=== PATIENT | male | born 1985 | race Caucasian/White ===

== ENCOUNTER 2017-01-07 12:15 | Emergency (ER) | payer OTHER ==
[~2017-01-07] VITALS: Ht 182.9 cm; Wt 73.0 kg
[~2017-01-07 12:15] MED LIST: ANAPROX DS550 M1 PO; CLEOCIN300 MG PO; FLEXERIL10 MG PO; MOTRIN800 MG PO; NAPROXEN500 MG PO; NOHOMEMEDS; NON ADHERENT P1 EACH TP; PERCOCET 5/31 TABLET PO; ULTRAM50 MG PO
[2017-01-07 12:54] VITALS: BP 105/52
== END 2017-01-07 12:35 | disposition left against medical advice (07) ==
LOC: EME 12:15
DX: T50.991A Poisoning by other drugs, medicaments and biological substances, accidental (unintentional), initial encounter (principal); F19.10 Other psychoactive substance abuse, uncomplicated; F17.200 Nicotine dependence, unspecified, uncomplicated; Z88.0 Allergy status to penicillin
CPT/HCPCS: 99281; 99284

== ENCOUNTER 2017-01-07 16:55 | Emergency (ER) | payer OTHER ==
[~2017-01-07] VITALS: Ht 185.4 cm; Wt 83.0 kg
[2017-01-07 17:18] VITALS: BP 108/60
== END 2017-01-07 17:19 | disposition home or self-care (01) ==
LOC: EME 16:55
DX: F19.10 Other psychoactive substance abuse, uncomplicated (principal); F17.200 Nicotine dependence, unspecified, uncomplicated; Z88.0 Allergy status to penicillin
CPT/HCPCS: 99281; 99283

== ENCOUNTER 2017-01-10 12:56 | Emergency (ER) | payer OTHER ==
[~2017-01-10] VITALS: Ht 182.9 cm; Wt 72.7 kg
[2017-01-10 14:35] VITALS: BP 89/49
== END 2017-01-10 14:37 | disposition left against medical advice (07) ==
LOC: EME 12:56
DX: T50.901A Poisoning by unspecified drugs, medicaments and biological substances, accidental (unintentional), initial encounter (principal); R41.82 Altered mental status, unspecified; F19.10 Other psychoactive substance abuse, uncomplicated; J45.909 Unspecified asthma, uncomplicated; F32.9 Major depressive disorder, single episode, unspecified; F17.200 Nicotine dependence, unspecified, uncomplicated; I95.9 Hypotension, unspecified
CPT/HCPCS: 80048; 85027; 94799; 99281; 99285; G0480; J2310; J7030

== ENCOUNTER 2017-01-10 16:38 | Emergency (ER) | payer OTHER ==
[~2017-01-10] VITALS: Ht 185.4 cm; Wt 70.0 kg
[2017-01-10 17:18] VITALS: BP 120/59
== END 2017-01-10 17:26 | disposition left against medical advice (07) ==
LOC: EME → EDBD 16:38 → EME 17:26
DX: F19.10 Other psychoactive substance abuse, uncomplicated (principal); F17.200 Nicotine dependence, unspecified, uncomplicated
CPT/HCPCS: 99281; 99285

== ENCOUNTER 2017-01-12 13:35 | Emergency (ER) | payer OTHER ==
[~2017-01-12] VITALS: Ht 182.9 cm; Wt 80.8 kg
[2017-01-12 13:46] VITALS: BP 0/0
== END 2017-01-12 13:57 ==
LOC: EME 13:35
DX: F16.10 Hallucinogen abuse, uncomplicated (principal); J45.909 Unspecified asthma, uncomplicated; F17.200 Nicotine dependence, unspecified, uncomplicated
CPT/HCPCS: J1630

== ENCOUNTER 2017-01-13 09:14 | Emergency (ER) | payer OTHER ==
[~2017-01-13] VITALS: Ht 185.4 cm; Wt 78.7 kg
[2017-01-13 11:18] VITALS: BP 115/67
== END 2017-01-13 11:20 | disposition left against medical advice (07) ==
LOC: EME → EDBD 09:14 → EME 11:20
DX: Z77.29 Contact with and (suspected) exposure to other hazardous substances (principal); Z88.0 Allergy status to penicillin; F17.200 Nicotine dependence, unspecified, uncomplicated
CPT/HCPCS: 80048; 85025; 99281; 99284

== ENCOUNTER 2017-01-13 16:08 | Emergency (ER) | payer OTHER ==
[~2017-01-13] VITALS: Ht 182.9 cm; Wt 81.9 kg
[2017-01-13 16:58] VITALS: BP 105/67
== END 2017-01-13 16:59 | disposition left against medical advice (07) ==
LOC: EME 16:08
DX: R55 Syncope and collapse (principal); F19.10 Other psychoactive substance abuse, uncomplicated; F17.200 Nicotine dependence, unspecified, uncomplicated; Z88.0 Allergy status to penicillin
CPT/HCPCS: 99281; 99285

== ENCOUNTER 2017-01-15 18:50 | Emergency (ER) | payer OTHER ==
[~2017-01-15] VITALS: Ht 182.9 cm; Wt 77.6 kg
[2017-01-15] MEDS ORDERED: NARCAN4 MG NS (19:59)
[2017-01-16 00:02] VITALS: BP 101/64
== END 2017-01-16 00:04 | disposition home or self-care (01) ==
LOC: EME 18:50
DX: T50.991A Poisoning by other drugs, medicaments and biological substances, accidental (unintentional), initial encounter (principal); M54.2 Cervicalgia; F14.90 Cocaine use, unspecified, uncomplicated; F15.90 Other stimulant use, unspecified, uncomplicated; F17.200 Nicotine dependence, unspecified, uncomplicated
CPT/HCPCS: 72040; 99281; 99285; J2310; J7030

== ENCOUNTER 2017-01-16 14:16 | Emergency (ER) | payer OTHER ==
[~2017-01-16] VITALS: Ht 182.9 cm; Wt 82.4 kg
[~2017-01-16 14:16] MED LIST changes: +NARCAN4 MG NS
[2017-01-16 16:19] VITALS: BP 121/79
== END 2017-01-16 16:20 | disposition left against medical advice (07) ==
LOC: EME 14:16
DX: F12.10 Cannabis abuse, uncomplicated (principal); J45.909 Unspecified asthma, uncomplicated; F17.200 Nicotine dependence, unspecified, uncomplicated
CPT/HCPCS: 99281; 99284

== ENCOUNTER 2017-01-17 14:21 | Emergency (ER) | payer OTHER ==
[~2017-01-17] VITALS: Ht 188 cm; Wt 75.0 kg
[2017-01-17 14:55] VITALS: BP 102/68
== END 2017-01-17 15:31 | disposition home or self-care (01) ==
LOC: EME 14:21
DX: F12.188 Cannabis abuse with other cannabis-induced disorder (principal); R00.1 Bradycardia, unspecified; I95.2 Hypotension due to drugs; F17.200 Nicotine dependence, unspecified, uncomplicated
CPT/HCPCS: 80053; 82550; 85027; 93005; 99281; 99284

== ENCOUNTER 2017-01-18 11:27 | Emergency (ER) | payer OTHER ==
[~2017-01-18] VITALS: Ht 182.9 cm; Wt 83.0 kg
[2017-01-18 12:38] VITALS: BP 101/48
== END 2017-01-18 12:41 | disposition left against medical advice (07) ==
LOC: EME 11:27
DX: T40.901A Poisoning by unspecified psychodysleptics [hallucinogens], accidental (unintentional), initial encounter (principal); R41.82 Altered mental status, unspecified; F16.10 Hallucinogen abuse, uncomplicated; J45.909 Unspecified asthma, uncomplicated; Z88.0 Allergy status to penicillin
CPT/HCPCS: 80048; 81003; 85025; 99281; 99284; G0480

== ENCOUNTER 2017-01-21 21:14 | Emergency (ER) | payer OTHER ==
[~2017-01-21] VITALS: Ht 182.9 cm; Wt 76.8 kg
[2017-01-21 21:43] VITALS: BP 91/44
== END 2017-01-21 21:43 | disposition home or self-care (01) ==
LOC: EME → EDBD 21:14 → EME 21:14
DX: F12.10 Cannabis abuse, uncomplicated (principal); J45.909 Unspecified asthma, uncomplicated; F17.200 Nicotine dependence, unspecified, uncomplicated; Z88.0 Allergy status to penicillin
CPT/HCPCS: 99281; 99282

== ENCOUNTER → 2017-01-23 16:49 | Emergency (ER) | payer OTHER ==
[~2017-01-23] VITALS: Ht 182.9 cm; Wt 75.0 kg
[2017-01-23 17:03] VITALS: BP 83/38
== END | disposition left against medical advice (07) ==
LOC: EME 16:49
DX: F19.10 Other psychoactive substance abuse, uncomplicated (principal); F17.200 Nicotine dependence, unspecified, uncomplicated; Z88.0 Allergy status to penicillin

== ENCOUNTER 2017-01-28 13:21 | Emergency (ER) | payer OTHER ==
[~2017-01-28] VITALS: Ht 182.9 cm; Wt 72.9 kg
[2017-01-28 13:47] VITALS: BP 93/47
== END 2017-01-28 13:47 | disposition home or self-care (01) ==
LOC: EME 13:21
DX: T50.991A Poisoning by other drugs, medicaments and biological substances, accidental (unintentional), initial encounter (principal); F12.10 Cannabis abuse, uncomplicated; J45.909 Unspecified asthma, uncomplicated; F17.200 Nicotine dependence, unspecified, uncomplicated; Z88.0 Allergy status to penicillin
CPT/HCPCS: 99281; 99284

== ENCOUNTER 2017-03-13 21:17 | Emergency (ER) | payer OTHER ==
[~2017-03-13] VITALS: Ht 182.9 cm; Wt 72.4 kg
[2017-03-13 21:27] VITALS: BP 87/44
== END 2017-03-14 00:16 | disposition left against medical advice (07) ==
LOC: EME → EDBD 21:17 → EME 21:17
DX: T40.991A Poisoning by other psychodysleptics [hallucinogens], accidental (unintentional), initial encounter (principal); R40.0 Somnolence; Y92.480 Sidewalk as the place of occurrence of the external cause; F16.10 Hallucinogen abuse, uncomplicated; J45.909 Unspecified asthma, uncomplicated; F32.9 Major depressive disorder, single episode, unspecified; F17.200 Nicotine dependence, unspecified, uncomplicated; Z88.0 Allergy status to penicillin
CPT/HCPCS: 99281; 99284

== ENCOUNTER 2017-03-23 09:46 | Emergency (ER) | payer OTHER ==
[~2017-03-23] VITALS: Ht 182.9 cm; Wt 72.7 kg
[2017-03-23 10:02] VITALS: BP 104/69
== END 2017-03-23 10:24 | disposition home or self-care (01) ==
LOC: EME 09:46
DX: I95.9 Hypotension, unspecified (principal); R55 Syncope and collapse; E86.0 Dehydration; F19.10 Other psychoactive substance abuse, uncomplicated; Z04.6 Encounter for general psychiatric examination, requested by authority; Z59.0 Homelessness; F17.200 Nicotine dependence, unspecified, uncomplicated; Z88.0 Allergy status to penicillin
CPT/HCPCS: 93005; 99281; 99284

== ENCOUNTER 2017-09-18 17:20 | Emergency (ER) | payer OTHER ==
[~2017-09-18] VITALS: Ht 182.9 cm; Wt 59.2 kg
[2017-09-18 18:35] LABS: HEMATOCRIT 47.3 % (38.0-50.0); HEMOGLOBIN 16.3 G/DL (12.5-16.6); MCH 30.5 PG (29.0-34.0); MCHC 34.5 G/DL (30.0-36.0); MCV 88.6 FL (86-99); PLATELET COUNT 289 K/uL (156-360); RBC DIS.WIDTH-CV 11.9 % (11.8-14.6); RBC DIS.WIDTH-SD 38.6 % (39-53); RED BLOOD COUNT 5.34 M/uL (4.00-5.50); WHITE BLOOD COUNT 13.7 K/uL (4.1-10.2)
[2017-09-18 18:47] LABS: ALBUMIN 4.6 g/dL (3.2-4.8)
[2017-09-18 18:48] LABS: CHLORIDE 103 mEq/L (99-109); POTASSIUM 4.5 mEq/L (3.7-5.4); SODIUM 138 mEq/L (136-147)
[2017-09-18 18:50] LABS: GLUCOSE 85 mg/dL (70-99); TOTAL PROTEIN 7.4 g/dL (6.4-8.3)
[2017-09-18 18:52] LABS: TOTAL BILIRUBIN 0.5 mg/dL (0.0-1.0)
[2017-09-18 18:53] LABS: SERUM ETHYL ALCOHOL < 10 mg/dL
[2017-09-18 18:54] LABS: ALKALINE PHOSPHATASE 63 IU/L (3-129); CREATININE 0.9 mg/dL (0.6-1.3); GFR ESTIMATE (CALCULATED) > 59 mL/min/ (58.99-99999)
[2017-09-18 18:55] LABS: AST (GOT) 16 IU/L (2-34)
[2017-09-18 18:56] LABS: UREA NITROGEN (BUN) 12 mg/dL (9-23)
[2017-09-18 18:57] LABS: ALT (GPT) 12 IU/L (3-49); SALICYLATE < 5.0 MG/DL (15-30)
[2017-09-18 18:58] LABS: ACETAMINOPHEN (TYLENOL) < 10 mcg/mL (10-30); CREATINE KINASE 23 IU/L (1-294)
[2017-09-18 19:04] LABS: TROP-I INTERPRETATION NEGATIVE; TROPONIN-I < 0.01 ng/mL (0.0-0.30)
[2017-09-18 19:42] LABS: AMPHETAMINE NEGATIVE (500 ng/mL); BARBITURATES NEGATIVE (200 ng/mL); BENZODIAZEPINES NEGATIVE (150 ng/mL); BUPRENORPHINE NEGATIVE (10 ng/mL); COCAINE PRESUMPTIVE POSITIVE (150 ng/mL); METHADONE NEGATIVE (200 ng/mL); METHAMPHETAMINE NEGATIVE (500 ng/mL); OPIATES (MORPHINE) NEGATIVE (100 ng/mL); OXYCODONE NEGATIVE (100 ng/mL); PHENCYCLIDINE NEGATIVE (25 ng/mL); PROPOXYPHENE NEGATIVE (300 ng/mL); THC CANNABINOIDS NEGATIVE (50 ng/mL); TRICYCLIC ANTIDEPRESSANTS NEGATIVE (300 ng/mL)
[2017-09-18 21:04] VITALS: BP 105/67
== END 2017-09-18 21:09 ==
LOC: EME → EDBD 17:20 → EME 21:09
PROVIDERS: Emergency Medicine
DX: T65.891A Toxic effect of other specified substances, accidental (unintentional), initial encounter (principal); R00.0 Tachycardia, unspecified; R41.82 Altered mental status, unspecified; Y92.481 Parking lot as the place of occurrence of the external cause; F17.200 Nicotine dependence, unspecified, uncomplicated
CPT/HCPCS: 70450; 80053; 82550; 84484; 84999; 85027; 93005; 99281; 99285; G0480; J2060; J7030